=== PATIENT | female | born 1950 | race Caucasian/White ===

== ENCOUNTER 2020-09-06 16:45 | Emergency (ER) | payer MEDICARE, BC ==
[~2020-09-06] VITALS: Ht 152.4 cm; Wt 70.5 kg
[~2020-09-06 16:45] MED LIST: ACYC-128 PO; ALBU18HF2 INH; CHLO25TA2 PO; HYDR2TAB28 PO; LIDOcaine 1% W/epiNEPHrine 1:200,000 10ml vial ONE; LOSA50TA3 PO; TRAZ-251 PO
[2020-09-06] MEDS ORDERED: HYDROcodone/acetaminophen 10/325mg tab PO STA (17:44)
[2020-09-06] MEDS ORDERED: acetaminophen 325mg tablet PO ONE (18:15)
[2020-09-06] MEDS ORDERED: ketorolac trometh inj. 60 MG/2 ML VIAL IM ONE (18:15)
[2020-09-06] MEDS ORDERED: ondansetron 4mg rapidly disintigrating tab PO ONE (18:15)
[2020-09-06] MEDS ORDERED: LORazepam 0.5 MG tablet PO ONE (18:30)
[2020-09-06] MEDS ORDERED: morphine 4 MG/ML inj SYRINge IM ONE (19:15)
[2020-09-06] MEDS ORDERED: BUPIVAcaine/PF 2.5 mg/ml (0.25%) 30ml vial IJ ONE (20:15)
[2020-09-06] MEDS ORDERED: BUPIVAcaine/PF 2.5mg/ml (0.25%) 10ml vial IJ ONE (20:15)
[2020-09-06] MEDS ORDERED: ACET-1025 PO (20:56)
[2020-09-06] MEDS ORDERED: KETO10TA2 PO (20:56)
[2020-09-06 21:31] VITALS: BP 178/118
== END 2020-09-06 21:33 | disposition home or self-care (01) ==
LOC: ER 16:46
DX: M25.512 Pain in left shoulder (principal); E78.00 Pure hypercholesterolemia, unspecified; I10 Essential (primary) hypertension; J45.909 Unspecified asthma, uncomplicated; G89.29 Other chronic pain; Z86.73 Personal history of transient ischemic attack (TIA), and cerebral infarction without residual deficits; Z96.612 Presence of left artificial shoulder joint; Z95.1 Presence of aortocoronary bypass graft; Z72.89 Other problems related to lifestyle; Z79.899 Other long term (current) drug therapy
CPT/HCPCS: 20552; 73030; 96372; 99284; J1885; J2270

== ENCOUNTER 2021-05-10 11:23 | Emergency (ER) | payer MEDICARE, BC ==
[~2021-05-10] VITALS: Ht 152.4 cm; Wt 65.9 kg
[~2021-05-10 11:23] MED LIST changes: +KETO10TA2 PO; -LIDOcaine 1% W/epiNEPHrine 1:200,000 10ml vial ONE
[2021-05-10 11:58] LABS: BASOPHILS # (AUTO) 0.1 X10'3 (0-0.2); BASOPHILS % (AUTO) 0.9 % (0-1); EOSINOPHILS # (AUTO) 0.1 X10'3 (0-0.9); EOSINOPHILS % (AUTO) 1.5 % (0-6); HEMATOCRIT 45.8 % (35.0-45.0); HEMOGLOBIN 15.6 g/dl (12.0-16.0); LYMPHOCYTES # (AUTO) 1.5 X10'3 (1.1-4.8); MEAN CORPUSCULAR HEMOGLOBIN 30.1 PG (27.0-31.0); MEAN CORPUSCULAR HGB CONC 34.1 g/dL (33.0-36.5); MEAN CORPUSCULAR VOLUME 88.4 FL (78-98); MEAN PLATELET VOLUME 7.5 FL (7.4-10.4); MONOCYTES # (AUTO) 0.4 X10'3 (0-0.9); MONOCYTES % (AUTO) 6.4 % (2-12); NEUTROPHILS # (AUTO) 3.5 X10'3 (1.8-7.7); NEUTROPHILS % (AUTO) 64.2 % (42-75); PLATELET COUNT 301 X10'3 (140-440); RED BLOOD COUNT 5.18 X10'6 (4.20-5.60); RED CELL DISTRIBUTION WIDTH 14.2 % (11.5-14.5); WHITE BLOOD COUNT 5.5 X10'3 (4.5-11.0)
[2021-05-10 12:21] LABS: ALANINE AMINOTRANSFERASE 113 U/L (12-78); ALBUMIN 3.8 G/DL (3.4-5.0); ANION GAP 9 (8-16); ASPARTATE AMINO TRANSFERASE 46 U/L (10-37); BILIRUBIN,TOTAL 0.6 MG/DL (0.1-1.0); BLOOD UREA NITROGEN 16 MG/DL (7-18); CALCIUM 9.4 MG/DL (8.5-10.1); CHLORIDE 103 MMOL/L (99-107); GLUCOSE 93 MG/DL (70-104); POTASSIUM 3.8 MMOL/L (3.5-5.1); SODIUM 140 MMOL/L (135-145); TOTAL CARBON DIOXIDE 28.3 MMOL/L (24-32); TOTAL PROTEIN 7.7 G/DL (6.4-8.2); eGFR 55 ML/MIN
[2021-05-10] MEDS ORDERED: ondansetron 4mg rapidly disintigrating tab PO ONE (12:25)
[2021-05-10] MEDS ORDERED: amLODIPine 5mg tablet PO ONE (12:25)
[2021-05-10] MEDS ORDERED: HYDROcodone/acetaminophen 5mg/325mg tablet PO ONE (12:25)
[2021-05-10 13:08] VITALS: BP 188/94
== END 2021-05-10 13:16 | disposition home or self-care (01) ==
LOC: ER 11:24
DX: I10 Essential (primary) hypertension (principal); E78.00 Pure hypercholesterolemia, unspecified; J45.909 Unspecified asthma, uncomplicated; G89.29 Other chronic pain; Z95.5 Presence of coronary angioplasty implant and graft; Z72.89 Other problems related to lifestyle; Z79.899 Other long term (current) drug therapy
CPT/HCPCS: 36415; 71045; 80053; 83880; 84484; 85025; 93005; 99285

== ENCOUNTER 2022-11-10 07:00 | Emergency (ER) | payer MEDICARE, BC ==
[~2022-11-10] VITALS: Ht 152.4 cm; Wt 68.2 kg
[~2022-11-10 07:00] MED LIST changes: +LOSA-416 PO; -LOSA50TA3 PO
[2022-11-10 07:03] VITALS: TEMP 98.1
--- NOTE | 2022-11-10 07:44 | NUR ---
received report assumed care of pt
[2022-11-10] MEDS ORDERED: ondansetron/PF 4mg/2ml inj IV ONE (08:30)
[2022-11-10] MEDS ORDERED: HYDROmorphone 1 mg/ml syringe IV ONE (08:30)
[2022-11-10 09:56] VITALS: BP 124/82; PULSE 57; RESP 18; O2SAT 99
== END 2022-11-10 09:57 | disposition home or self-care (01) ==
LOC: ER 07:00
DX: L76.33 Postprocedural seroma of skin and subcutaneous tissue following a dermatologic procedure (principal); E78.00 Pure hypercholesterolemia, unspecified; I10 Essential (primary) hypertension; J45.909 Unspecified asthma, uncomplicated; Z79.899 Other long term (current) drug therapy; Z88.6 Allergy status to analgesic agent; Z79.2 Long term (current) use of antibiotics
CPT/HCPCS: 96374; 96375; 99284; J1170; J2405; A6258